=== PATIENT | female | born 1970 | race African-American/Black ===

== ENCOUNTER 2017-01-05 03:48 | Emergency (ER) | payer OTHER ==
[~2017-01-05] VITALS: Ht 157.5 cm; Wt 81.6 kg
[2017-01-05 05:43] VITALS: BP 147/88
== END 2017-01-05 05:43 | disposition home or self-care (01) ==
LOC: ED 03:48
DX: M47.898 Other spondylosis, sacral and sacrococcygeal region (principal); E11.9 Type 2 diabetes mellitus without complications; E03.9 Hypothyroidism, unspecified; Z91.018 Allergy to other foods; Z88.6 Allergy status to analgesic agent; Z79.84 Long term (current) use of oral hypoglycemic drugs; Z79.82 Long term (current) use of aspirin
CPT/HCPCS: J3360

== ENCOUNTER 2017-07-15 21:25 | Emergency (ER) | payer OTHER ==
[~2017-07-15] VITALS: Ht 157.5 cm; Wt 83.9 kg
[2017-07-15 22:01] VITALS: Ht 157.5 cm; Wt 83.9 kg
[2017-07-16 01:45] VITALS: BP 119/76
== END 2017-07-16 01:45 | disposition home or self-care (01) ==
LOC: ED 21:25
DX: J11.1 Influenza due to unidentified influenza virus with other respiratory manifestations (principal); J18.9 Pneumonia, unspecified organism; E11.9 Type 2 diabetes mellitus without complications; E07.9 Disorder of thyroid, unspecified; F17.200 Nicotine dependence, unspecified, uncomplicated; Z88.3 Allergy status to other anti-infective agents; Z71.6 Tobacco abuse counseling; Z88.6 Allergy status to analgesic agent; Z91.018 Allergy to other foods
CPT/HCPCS: 99406

== ENCOUNTER 2017-12-20 19:59 | Inpatient (IN) | payer OTHER ==
[~2017-12-20] VITALS: Ht 157.5 cm; Wt 81.0 kg
[2017-12-20 20:03] VITALS: Ht 157.5 cm; Wt 81.0 kg
[2017-12-20 22:20] LABS: UA SPECIFIC GRAVITY <=1.005 (1.005-1.035); microscopic required? YES; urine erythrocyte TRACE (NEGATIVE)
[2017-12-20 22:51] LABS: BASOPHIL % 0.3 % (0-2); PLATELET COUNT 260 x10^3mcL (130-400); RED CELL DISTRIBUTION WIDTH 12.3 % (11.5-14.5)
[2017-12-20 22:57] LABS: CALCIUM 9.6 mg/dL (8.5-10.1); CARBON DIOXIDE 23.1 mmol/L (21-32); CHLORIDE SERUM 98 mmol/L (98-107); CREATININE SERUM 0.6 mg/dL (0.6-1.0); GFR1 > 60 mL/min; GLUCOSE SERUM 358 mg/dL (74-106); POTASSIUM SERUM 3.6 mmol/L (3.5-5.1); SODIUM SERUM 134 mmol/L (136-145)
[2017-12-20 23:10] LABS: ALBUMIN 3.4 g/dL (3.4-5.0); ALKALINE PHOSPHATASE 89 U/L (46-116); ALT/SGPT 16 U/L (14-59); AST/SGOT 7 U/L (15-37); BILIRUBIN TOTAL 0.5 mg/dL (0.20-1.00); FREE T4 1.08 ng/dL (0.76-1.46); TOTAL PROTEIN, SERUM 7.2 g/dL (6.4-8.2)
[2017-12-21 01:54] LABS: CHOLESTEROL/HDL RATIO 3.9; MAGNESIUM 1.7 mg/dL (1.8-2.4); PHOSPHOROUS 4.4 mg/dL (2.5-4.9)
[2017-12-21 02:31] VITALS: BP 98/58
[2017-12-21] MEDS ORDERED: NEU300 PO (03:01)
[2017-12-21] MEDS ORDERED: HUMALOG100 U/ML SC (03:01)
[2017-12-21] MEDS ORDERED: METFORMIN HCL850 MG PO (03:01)
[2017-12-21] MEDS ORDERED: ASPIR 8181 MG PO (03:02)
[2017-12-21 03:55] LABS: AMPHETAMINE QUAL UR NONE DETECTED (NEG <=1000)
[2017-12-21 05:42] VITALS: BP 102/60
[2017-12-21 09:41] VITALS: BP 95/63
[2017-12-21 13:34] VITALS: BP 100/60
[2017-12-21 17:11] VITALS: BP 97/61
[2017-12-21 21:25] VITALS: BP 99/59
[2017-12-22 04:54] VITALS: BP 94/56
[2017-12-22 06:42] LABS: BASOPHIL % 0.3 % (0-2); PLATELET COUNT 238 x10^3mcL (130-400); RED CELL DISTRIBUTION WIDTH 12.5 % (11.5-14.5)
[2017-12-22 07:07] LABS: CALCIUM 8.5 mg/dL (8.5-10.1); CARBON DIOXIDE 24.3 mmol/L (21-32); CHLORIDE SERUM 110 mmol/L (98-107); CREATININE SERUM 0.5 mg/dL (0.6-1.0); GFR1 > 60 mL/min; GLUCOSE SERUM 283 mg/dL (74-106); MAGNESIUM 1.8 mg/dL (1.8-2.4); POTASSIUM SERUM 4.2 mmol/L (3.5-5.1); SODIUM SERUM 145 mmol/L (136-145)
[2017-12-22 08:39] VITALS: BP 99/66
[2017-12-22] MEDS ORDERED: GLU5 PO (08:51)
[2017-12-22] MEDS ORDERED: BD LACTINEX1.4 MG PO (15:22)
[2017-12-22] MEDS ORDERED: LEVAQUIN750 MG PO (15:22)
[2017-12-22 16:39] VITALS: BP 99/66
== END 2017-12-22 18:40 | disposition home or self-care (01) | DRG 463 ==
LOC: ED 19:59 → DU 12-21 00:59 → MU 12-22 09:16
PROVIDERS: Emergency Medicine; Family Medicine
DX: N39.0 Urinary tract infection, site not specified (principal); D68.69 Other thrombophilia; E11.40 Type 2 diabetes mellitus with diabetic neuropathy, unspecified; E11.65 Type 2 diabetes mellitus with hyperglycemia; E11.59 Type 2 diabetes mellitus with other circulatory complications; E83.42 Hypomagnesemia; J06.9 Acute upper respiratory infection, unspecified; J01.90 Acute sinusitis, unspecified; E04.1 Nontoxic single thyroid nodule; E78.5 Hyperlipidemia, unspecified; F17.200 Nicotine dependence, unspecified, uncomplicated; E66.9 Obesity, unspecified; Z68.32 Body mass index [BMI] 32.0-32.9, adult; Z90.49 Acquired absence of other specified parts of digestive tract; Z79.82 Long term (current) use of aspirin; Z79.84 Long term (current) use of oral hypoglycemic drugs
CPT/HCPCS: 82962; 83880; 84439; 87804; J1450; J1956; J3475; J7030; Q0092

== ENCOUNTER 2018-08-27 08:18 | Emergency (ER) | payer OTHER ==
[~2018-08-27] VITALS: Ht 157.5 cm; Wt 72.1 kg
[~2018-08-27 08:18] MED LIST: ASPIR 8181 MG PO; BD LACTINEX1.4 MG PO; GLU5 PO; HUMALOG100 U/ML SC; LEVAQUIN750 MG PO; METFORMIN HCL850 MG PO; NEU300 PO
[2018-08-27 08:24] VITALS: Ht 157.5 cm; Wt 72.1 kg
[2018-08-27 09:42] LABS: BASOPHIL % 0.6 % (0-2); PLATELET COUNT 273 x10^3mcL (130-400); RED CELL DISTRIBUTION WIDTH 12.2 % (11.5-14.5)
[2018-08-27 09:45] LABS: ALKALINE PHOSPHATASE 96 U/L (46-116); ALT/SGPT 17 U/L (14-59); AST/SGOT 11 U/L (15-37); BILIRUBIN TOTAL 0.61 mg/dL (0.20-1.00); CALCIUM 9.3 mg/dL (8.5-10.1); CARBON DIOXIDE 17.4 mmol/L (21-32); CHLORIDE SERUM 99 mmol/L (98-107); CHOLESTEROL 322 mg/dL (<200); CHOLESTEROL/HDL RATIO 6.7; CREATININE SERUM 0.8 mg/dL (0.6-1.0); GFR1 > 60 mL/min; GLUCOSE SERUM 347 mg/dL (74-106); HDL CHOLESTEROL 48 mg/dL (40-60); LIPASE 196 IU/L (73-393); POTASSIUM SERUM 4.7 mmol/L (3.5-5.1); SODIUM SERUM 138 mmol/L (136-145); TOTAL PROTEIN, SERUM 8.2 g/dL (6.4-8.2); TRIGLYCERIDES 237 mg/dL (<150)
[2018-08-27 09:56] LABS: FREE T4 1.1 ng/dL (0.76-1.46); FREE THYROXINE INDEX 2.5 ug/dL (1.4-4.5); T4(THYROXINE) 6.7 ug/dL (4.7-13.3)
[2018-08-27 10:14] LABS: T3 TOTAL 0.67 ng/mL
[2018-08-27 10:15] LABS: UA SPECIFIC GRAVITY >=1.030 (1.005-1.035); microscopic required? YES; urine erythrocyte TRACE (NEGATIVE)
[2018-08-27 11:06] VITALS: BP 101/73
== END 2018-08-27 11:06 | disposition home or self-care (01) ==
LOC: ED 08:18
PROVIDERS: Specialist
DX: M94.0 Chondrocostal junction syndrome [Tietze] (principal); E11.9 Type 2 diabetes mellitus without complications; F17.210 Nicotine dependence, cigarettes, uncomplicated; Z91.018 Allergy to other foods; Z88.6 Allergy status to analgesic agent
CPT/HCPCS: 36415; 83880; 84439; 85378; Q0092

== ENCOUNTER 2018-08-29 21:44 | Inpatient (IN) | payer OTHER ==
[~2018-08-29] VITALS: Ht 157.5 cm; Wt 70.0 kg
[2018-08-29 22:34] LABS: BASOPHIL % 0.5 % (0-2); PLATELET COUNT 287 x10^3mcL (130-400); RED CELL DISTRIBUTION WIDTH 12.6 % (11.5-14.5)
[2018-08-29 22:49] LABS: ALBUMIN 3.7 g/dL (3.4-5.0); ALKALINE PHOSPHATASE 98 U/L (46-116); ALT/SGPT 16 U/L (14-59); AMYLASE 31 U/L (25-115); AST/SGOT 7 U/L (15-37); BILIRUBIN TOTAL 0.5 mg/dL (0.20-1.00); CALCIUM 9.3 mg/dL (8.5-10.1); CARBON DIOXIDE 14.2 mmol/L (21-32); CHLORIDE SERUM 95 mmol/L (98-107); GFR1 > 60 mL/min; LIPASE 155 IU/L (73-393); POTASSIUM SERUM 3.5 mmol/L (3.5-5.1); SODIUM SERUM 130 mmol/L (136-145); TOTAL PROTEIN, SERUM 7.7 g/dL (6.4-8.2)
[2018-08-29 22:51] LABS: GLUCOSE SERUM 620 mg/dL (74-106)
[2018-08-29 23:33] LABS: microscopic required? YES; urine erythrocyte TRACE (NEGATIVE)
[2018-08-30] VITALS (7 sets, daily range): BP systolic 86–107; BP diastolic 51–58; Ht 157.5 cm; Wt 70.0 kg
[2018-08-30 08:49] LABS: CALCIUM 8.1 mg/dL (8.5-10.1); CARBON DIOXIDE 25.7 mmol/L (21-32); CHLORIDE SERUM 110 mmol/L (98-107); CREATININE SERUM 0.6 mg/dL (0.6-1.0); GFR1 > 60 mL/min; GLUCOSE SERUM 214 mg/dL (74-106); MAGNESIUM 1.7 mg/dL (1.8-2.4); PHOSPHOROUS 1.1 mg/dL (2.5-4.9); SODIUM SERUM 143 mmol/L (136-145)
[2018-08-31] VITALS (7 sets, daily range): BP systolic 82–152; BP diastolic 49–100
[2018-08-31 06:59] LABS: CALCIUM 7.4 mg/dL (8.5-10.1); CARBON DIOXIDE 24.5 mmol/L (21-32); CHLORIDE SERUM 104 mmol/L (98-107); CREATININE SERUM 0.5 mg/dL (0.6-1.0); GFR1 > 60 mL/min; GLUCOSE SERUM 274 mg/dL (74-106); MAGNESIUM 1.8 mg/dL (1.8-2.4); PHOSPHOROUS 2.3 mg/dL (2.5-4.9); POTASSIUM SERUM 3.1 mmol/L (3.5-5.1); SODIUM SERUM 136 mmol/L (136-145)
[2018-08-31 07:06] LABS: BASOPHIL % 0.4 % (0-2); PLATELET COUNT 196 x10^3mcL (130-400); RED CELL DISTRIBUTION WIDTH 12.6 % (11.5-14.5)
[2018-09-01 05:30] VITALS: BP 84/52
[2018-09-01 06:26] LABS: BASOPHIL % 1.6 % (0-2); PLATELET COUNT 188 x10^3mcL (130-400); RED CELL DISTRIBUTION WIDTH 12.7 % (11.5-14.5)
[2018-09-01 07:24] LABS: CALCIUM 7.7 mg/dL (8.5-10.1); CARBON DIOXIDE 25.5 mmol/L (21-32); CHLORIDE SERUM 106 mmol/L (98-107); CREATININE SERUM 0.5 mg/dL (0.6-1.0); GFR1 > 60 mL/min; GLUCOSE SERUM 265 mg/dL (74-106); POTASSIUM SERUM 3.5 mmol/L (3.5-5.1); SODIUM SERUM 138 mmol/L (136-145)
[2018-09-01 08:58] VITALS: BP 84/49
[2018-09-01 14:30] VITALS: BP 86/53
== END 2018-09-01 17:05 | disposition home or self-care (01) | DRG 420 ==
LOC: ED 21:44 → DU 08-30 00:49 → IC 08-30 00:49 → DU 08-30 15:22
PROVIDERS: Emergency Medicine; ADMIT Internal Medicine
DX: E11.10 Type 2 diabetes mellitus with ketoacidosis without coma (principal); N17.0 Acute kidney failure with tubular necrosis; E83.39 Other disorders of phosphorus metabolism; I95.9 Hypotension, unspecified; K31.84 Gastroparesis; E87.1 Hypo-osmolality and hyponatremia; J11.1 Influenza due to unidentified influenza virus with other respiratory manifestations; E11.43 Type 2 diabetes mellitus with diabetic autonomic (poly)neuropathy; E87.6 Hypokalemia; E78.5 Hyperlipidemia, unspecified; F17.210 Nicotine dependence, cigarettes, uncomplicated; Z68.29 Body mass index [BMI] 29.0-29.9, adult; Z79.82 Long term (current) use of aspirin; Z79.4 Long term (current) use of insulin
CPT/HCPCS: 36600; 82962; 87804; J1200; J1815; J2405; J2765; J3475; J3480; J3490; J7030; J7040; Q0092

== ENCOUNTER 2020-01-24 13:38 | Emergency (ER) | payer SELFPAY ==
[~2020-01-24] VITALS: Ht 157.5 cm; Wt 64.4 kg
[2020-01-24 14:14] VITALS: BP 103/70; Ht 157.5 cm; Wt 64.4 kg
[2020-01-24 16:32] LABS: PLATELET COUNT 363 x10^3mcL (130-400); RED CELL DISTRIBUTION WIDTH 12.5 % (11.5-14.5)
[2020-01-24 16:34] LABS: BASOPHIL % 2.2 % (0-2)
[2020-01-24 16:44] LABS: CALCIUM 8.9 mg/dL (8.5-10.1); CARBON DIOXIDE 22.7 mmol/L (21-32); CHLORIDE SERUM 98 mmol/L (98-107); CREATININE SERUM 0.6 mg/dL (0.6-1.0); GFR1 > 60 mL/min; GLUCOSE SERUM 251 mg/dL (74-106); SODIUM SERUM 135 mmol/L (136-145)
[2020-01-24 16:48] LABS: ALBUMIN 3.9 g/dL (3.4-5.0); ALKALINE PHOSPHATASE 79 U/L (46-116); ALT/SGPT 14 U/L (14-59); AST/SGOT 6 U/L (15-37); BILIRUBIN TOTAL 0.46 mg/dL (0.20-1.00); MAGNESIUM 1.9 mg/dL (1.8-2.4); TOTAL PROTEIN, SERUM 7.6 g/dL (6.4-8.2)
== END 2020-01-24 17:16 | disposition home or self-care (01) ==
LOC: ED 13:38
PROVIDERS: Emergency Medicine
DX: E11.65 Type 2 diabetes mellitus with hyperglycemia (principal); F17.210 Nicotine dependence, cigarettes, uncomplicated; Z71.6 Tobacco abuse counseling; Z91.018 Allergy to other foods; Z88.6 Allergy status to analgesic agent
CPT/HCPCS: 36415; 82962